=== PATIENT | female | born 2000 | race Caucasian/White ===

== ENCOUNTER 2022-12-16 01:01 | Emergency (ER) | payer BC ==
[~2022-12-16] VITALS: Ht 162.6 cm; Wt 55.0 kg
[2022-12-16 01:05] VITALS: BP 93/54
[2022-12-16] MEDS ORDERED: ONDANSETRON HCL 4MG/2ML INJ IV STA (01:32)
[2022-12-16] MEDS ORDERED: SODIUM CHLORIDE 0.9% 1,000 ML IV ONE (01:45)
[2022-12-16 03:07] LABS: BASOPHILS % 0.3 % (0.0-2.0); HEMATOCRIT. 35.3 % (36.0-48.0); HEMOGLOBIN. 11.1 g/dL (12.0-16.0); LYMPHOCYTES % 7.2 % (20.0-50.0); MEAN CORPUSCULAR HEMOGLOBIN 24.2 pg (28.0-32.0); MEAN PLATELET VOLUME 9.3 fl (7.4-10.4); MONOCYTES % 4.3 % (2.0-8.0); NEUTROPHILS % 88.2 % (40.0-76.0); PLATELET 312 x1000/uL (130-400); RED BLOOD CELL COUNT 4.59 mill/uL (4.2-5.4); RED CELL DISTRIBUTION WIDTH 19.3 % (11.6-14.6)
[2022-12-16 03:22] LABS: CHLORIDE 113 mEq/L (98-107)
[2022-12-16 03:32] LABS: ETHANOL BLOOD 107 mg/dL
== END 2022-12-16 06:38 | disposition home or self-care (01) ==
LOC: ER 01:01
DX: T51.0X1A Toxic effect of ethanol, accidental (unintentional), initial encounter (principal); R41.82 Altered mental status, unspecified; Y90.5 Blood alcohol level of 100-119 mg/100 ml; Y92.39 Other specified sports and athletic area as the place of occurrence of the external cause
CPT/HCPCS: 36415; 80053; 80320; 85025; 96361; 96374; 99283; J2405; J7030; Z7610; G0480